=== PATIENT | male | born 1935 | race Caucasian/White ===

== ENCOUNTER 2021-03-04 10:52 | Outpatient (CLI) | payer MEDICARE | END 2021-03-04 23:59 | disposition home or self-care (01) | LOC: RAD 10:52 | PROVIDERS: ATTEND Internal Medicine Cardiovascular Disease | DX: Z01.810 Encounter for preprocedural cardiovascular examination (principal); I65.23 Occlusion and stenosis of bilateral carotid arteries; R06.02 Shortness of breath; I25.10 Atherosclerotic heart disease of native coronary artery without angina pectoris; I35.0 Nonrheumatic aortic (valve) stenosis; N28.1 Cyst of kidney, acquired; K57.30 Diverticulosis of large intestine without perforation or abscess without bleeding; K40.90 Unilateral inguinal hernia, without obstruction or gangrene, not specified as recurrent; I71.4 Abdominal aortic aneurysm, without rupture; M51.36 Other intervertebral disc degeneration, lumbar region | CPT/HCPCS: 71250; 74176; 93880 ==